=== PATIENT | female | born 1945 | race Caucasian/White ===

== ENCOUNTER 2017-04-05 19:10 | Emergency (ER) | END 2017-04-06 00:29 | disposition home or self-care (01) ==

== ENCOUNTER 2017-06-28 23:33 | Emergency (ER) | END 2017-06-29 03:00 | disposition home or self-care (01) ==

== ENCOUNTER 2017-07-23 04:47 | Emergency (ER) | END 2017-07-23 07:55 | disposition home or self-care (01) ==

== ENCOUNTER 2018-07-19 21:25 | Emergency (ER) | payer MEDICARE, OTHER ==
[~2018-07-19] VITALS: Ht 147.3 cm; Wt 93.8 kg
[~2018-07-19 21:25] MED LIST: AZIT250T PO; BEN50 PO; ESCI10TA; LORA1TAB PO; NPH10OT RIGHT EAR; ONDA4TAB14 PO; PROM5SYR2 PO; RTPRO; TRIA1CAP44; [UNRECOGNIZED DRUG - CODE]
[2018-07-19 21:40] VITALS: Ht 147.3 cm; Wt 93.8 kg
--- NOTE | 2018-07-19 23:06 | ERD ---
ER Documentation Chief Complaint Chief Complaint states been having hard time sleeping x 3 days, HPI During the patient's encounter translation services were utilized Language: Trinidadian Source: In person 73-year-old female history of anxiety who presents with 3 days of insomnia. The patient states that she usually takes her Ativan for this but she states that sometimes when she takes her Ativan she has some memory issues and does not want to take Ativan. She notes increasing social stressors. She denies any fevers chills chest pain or shortness of breath. Patient is asking for a shot to make things better. Patient has no other complaints. ROS All systems reviewed and are negative except as per history of present illness. Medications Home Meds Active Scripts Neomycin/Polymyxin/Hydrocort* (Cortisporin* Otic) 10 Ml Susp, 4 DROP RIGHT EAR QID for 7 Days, EA Prov:ERIC DEVLIN PA-C 07/23/17 Diphenhydramine Hcl* (Benadryl*) 50 Mg Cap, 50 MG PO Q6H PRN for ITCHING/RASH, #30 CAP Prov:MIRI RAMACHANDRAN NP 06/29/17 Lorazepam* (Lorazepam*) 1 Mg Tablet, 1 MG PO Q8H PRN for ANXIETY, #10 TAB Prov:ANSELMO LAM MD 04/06/17 Promethazine HCl/Codeine (Prometh-Codein 6.25-10 mg/5 ml) 5 Ml Syrup, 5 ML PO QHS, #120 ML Prov:ANSELMO LAM MD 04/06/17 Azithromycin* (Zithromax*) 250 Mg Tablet, 250 MG PO .ZACARIAS DIRECTED, #6 TAB TAKE 500 MG (2 TABS) THE FIRST DAY THEN 250 MG (1 TAB) DAYS 2-5 Prov:ANSELMO LAM MD 04/06/17 Ondansetron (Ondansetron Odt) 4 Mg Tab.rapdis, 4 MG PO Q6H PRN for NAUSEA AND/OR VOMITING, #10 TAB Prov:DAWSON BOYD PA-C 11/25/15 Reported Medications Albuterol Sulfate* (Proventil* Neb) 3 Ml Nebu 06/03/09 Escitalopram Oxalate* (Lexapro*) 10 Mg Tablet 06/03/09 Triamterene-HCTZ (Triamterene-HCTZ) 1 Cap Capsule 06/03/09 Diphenhydramine Hcl (Benadrilina) 25 Mg Capsule 06/03/09 Allergies Allergies: Coded Allergies: Penicillins (Verified Allergy, Unknown, hives, 07/23/17) PMhx/Soc Medical and Surgical Hx: pt denies Medical Hx History of Surgery: Yes (Multiple surgeries on the left upper extremity) Anesthesia Reaction: No Hx Neurological Disorder: No Hx Respiratory Disorders: No Hx Cardiac Disorders: No Hx Psychiatric Problems: No Hx Miscellaneous Medical Probl: No Hx Alcohol Use: No Hx Substance Use: No Hx Tobacco Use: No Smoking Status: Never smoker Physical Exam Vitals Vital Signs Date Temp Pulse Resp B/P (MAP) Pulse Ox O2 O2 Flow FiO2 Time Delivery Rate 07/19/18 98.0 76 18 160/82 96 21:40 (108) Physical Exam General: Well developed, well nourished, no acute distress Head: Normocephalic, atraumatic. Eyes: EOM intact ENT: Moist mucous membranes Neck: Full ROM Respiratory: No respiratory distress Cardiovascular: Well perfused distally Abdominal: Nondistended : Deferred MSK: No edema, no unilateral swelling, 5/5 strength Neurologic: Alert and oriented, moving all extremities, normal speech, steady gait Skin: No rash Psych: Normal mood Procedures/MDM The patient has insomnia. No signs or symptoms concerning for emergent medical condition or underlying infectious or ischemic process. EKG at triage was performed based on age but she is not having any chest pain or cardiac etiology type of complaints. EKG: I reviewed and interpreted a 12-lead EKG. Rhythm: Normal sinus rhythm ST Changes: No contiguous ST segment elevations T waves: No contiguous T wave inversions Impression: [No evidence of acute cardiac ischemia] Unfortunately given the patient's age I do not feel comfortable prescribing Ambien. I believe the side effect profile outweighs any benefits of this medication. The patient is currently prescribed Ativan but is refusing to take it. I do not believe IV fluids laboratory testing or injection of Ativan are necessary at this time. The risks outweigh any benefits. The patient was given reassurance, outpatient follow-up with primary care physician and referral to sleep medicine physician will be appropriate. Return precautions were discussed and understood. The patient does not have an ident ifiable emergent medical condition that warrants inpatient hospitalization at this time. The patient is deemed safe for discharge with outpatient follow-up. We discussed follow up with the patient's primary care doctor within 24 to 48 hours as needed. We also discussed return to the emergency room for worsening symptoms or worsening condition. Outpatient referral: sleep medicine Discharge Medications: None required Departure Diagnosis: Primary Impression: Insomnia Insomnia type: primary Qualified Codes: F51.01 - Primary insomnia Condition: Stable Patient Instructions: Insomnia Referrals: DINORA HALEY MD (PCP) RICCARDO SHARMA MD Additional Instructions: Llame al doctor nombrado abajo (Referral Sources) MAANA y gianfranco corey MAGDY PARA DENTRO DE COREY SEMANA. Dgale a la secretaria que nosotros le instruimos hacer esta magdy.Avise o llame si daly condicin se empeora antes de la magdy. BELLA MOSS MD Jul 19, 2018 23:06
[2018-07-19 23:11] VITALS: BP 131/69; PULSE 77; RESP 18
== END 2018-07-19 23:22 | disposition home or self-care (01) ==
LOC: E/R 21:25
DX: F51.01 Primary insomnia (principal); R07.9 Chest pain, unspecified
CPT/HCPCS: 93005